=== PATIENT | male | born 1965 | race African-American/Black ===

== ENCOUNTER 2019-04-27 10:19 | Inpatient (IN) | payer OTHER ==
[2019-04-27 12:27] VITALS: BMI 25.7
--- NOTE | 2019-04-27 13:29 | HP ---
CIWA Score Nausea/Vomitin Muscle Tremors: 2 Anxiety: 2 Agitation: 2 Paroxysmal Sweats: 2 Orientation: 0-Oriented Tacttile Disturbances: 2-Mild Itch/Numbness/Burn Auditory Disturbances: 0-None Visual Disturbances: 1-Very Mild Sensitivity Headache: 2-Mild CIWA-Ar Total Score: 15 - Admission Criteria OASAS Guidelines: Admission for Medically Managed Detox: Requires at least one of the followin. CIWA greater than 12 2. Seizures within the past 24 hours 3. Delirium tremens within the past 24 hours 4. Hallucinations within the past 24 hours 5. Acute intervention needed for co occurring medical disorder 6. Acute intervention needed for co occurring psychiatric disorder 7. Severe withdrawal that cannot be handled at a lower level of care (continued vomiting, continued diarrhea, abnormal vital signs) requiring intravenous medication and/or fluids 8. Patient presents the following: CIWA greater than 12 Admission Criteria Met: Admission criteria met Admitting History and Physical - Smoking History Smoking history: Current every day smoker Have you smoked in the past 12 months: Yes Aproximately how many cigarettes per day: 10 Admission ROS [facility] Chief Complaint: I need detox Allergies/Adverse Reactions: Allergies Allergy/AdvReac Type Severity Reaction Status Date / Time No Known Allergies Allergy Verified 04/27/19 12:14 History of Present Illness: Patient is a 54 year old man who presents for detox from alcohol. Patient denies previous treatment but reports rehab from July to september in 2019 in [place]. He reports remote h/o blackout, denies seizures. Exam Limitations: No Limitations - Ebola screening Have you traveled outside of the country in the last 21 days: No Have you had contact with anyone from an Ebola affected area: No Have you been sick,other than usual withdrawal symptoms: No Do you have a fever: No - Review of Systems Constitutional: Loss of Appetite, Malaise, Changes in sleep, Unintentional Wgt. Loss EENT: reports: Blurred Vision (wear eye glasses) Respiratory: reports: Cough (r/t smoking) Cardiac: reports: Palpitations (sometimes) GI: reports: Poor Appetite, Poor Fluid Intake, Abdominal cramping : reports: No Symptoms Reported Musculoskeletal: reports: Back Pain, Muscle Pain, Muscle Weakness Integumentary: reports: Sweating Neuro: reports: Headache, Numbness, Tremors Endocrine: reports: No Symptoms Reported Hematology: reports: No Symptoms Reported Psychiatric: reports: Anxious Other Systems: Reviewed and Negative Patient History - Patient Medical History Hx Anemia: No Hx Asthma: No Hx Chronic Obstructive Pulmonary Disease (COPD): No Hx Cancer: No Hx Cardiac Disorders: Yes (enlarged heart) Hx Congestive Heart Failure: No Hx Hypertension: Yes Hx Hypercholesterolemia: Yes Hx Pacemaker: No HX Cerebrovascular Accident: No Hx Seizures: No Hx Dementia: No Hx Diabetes: No Hx Gastrointestinal Disorders: Yes (GERD) Hx Liver Disease: No Hx Genitourinary Disorders: No Hx Sexually Transmitted Disorders: No Hx Renal Disease (ESRD): No Hx Thyroid Disease: No Hx Human Immunodeficiency Virus (HIV): No Hx Hepatitis C: No Hx Depression: No Hx Suicide Attempt: No Hx Bipolar Disorder: No Hx Schizophrenia: No - Patient Surgical History Past Surgical History: No - PPD History Previous Implant?: No Documented Results: Negative w/o proof Implanted On Prior [facility] Admission?: No PPD to be Administered?: Yes - Smoking Cessation Smoking history: Current every day smoker Have you smoked in the past 12 months: Yes Aproximately how many cigarettes per day: 10 Hx Chewing Tobacco Use: No Initiated information on smoking cessation: Yes 'Breaking Loose' booklet given: 04/27/19 - Substances abused Alcohol Substance route: Oral Frequency: Daily Amount used: 1 liter [place]ne Age of first use: 9 Date of last use: 04/26/19 Admission Physical Exam [facility] - Vital Signs Vital Signs: Vital Signs - 24 hr 04/27/19 12:23 Temperature 96.9 F L Pulse Rate 80 Respiratory 16 Rate Blood Pressure 142/90 - Physical General Appearance: Yes: No Apparent Distress, Other (emotional) HEENTM: Yes: Normocephalic, Normal Voice, Pharynx Normal Respiratory: Yes: Chest Non-Tender, Lungs Clear, No Respiratory Distress, No A ccessory Muscle Use Neck: Yes: No masses,lesions,Nodules, Supple Breast: Yes: Breast Exam Deferred Cardiology: Yes: Regular Rhythm, Regular Rate, S1, S2 Abdominal: Yes: Normal Bowel Sounds, Non Tender, Hernia (abdominal), Other (firm) Genitourinary: Yes: Within Normal Limits Back: Yes: Normal Inspection Musculoskeletal: Yes: Back pain, Muscle Pain, Muscle weakness Extremities: Yes: Tremors 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: 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 NML intact, Fully Oriented, Alert, Normal Mood/Affect, Normal Response Integumentary: Yes: Moist Lymphatic: Yes: Within Normal Limits - Diagnostic (1) Alcohol dependence, uncomplicated Current Visit: Yes Status: Acute (2) HTN (hypertension) Current Visit: Yes Status: Acute Qualifiers: Hypertension type: essential hypertension Qualified Code(s): I10 - Essential (primary) hypertension (3) Hyperlipidemia Current Visit: Yes Status: Acute Qualifiers: Hyperlipidemia type: other hyperlipidemia Qualified Code(s): E78.49 - Other hyperlipidemia; E78.4 - Other hyperlipidemia (4) Nicotine dependence Current Visit: Yes Status: Acute Qualifiers: Nicotine product type: cigarettes Substance use status: uncomplicated Qualified Code(s): F17.210 - Nicotine dependence, cigarettes, uncomplicated (5) GERD (gastroesophageal reflux disease) Current Visit: Yes Status: Chronic Qualifiers: Esophagitis presence: without esophagitis Qualified Code(s): K21.9 - Gastro-esophageal reflux disease without esophagitis Cleared for Admission [facility] - Detox or Rehab S Level of Care: Medically Managed Detox Regimen/Protocol: Librium Claeared for Rehab Admission: No Breathalyzer - Breathalyzer Breathalyzer: 0 Urine Drug Screen - Test Device Lot number: [id number] Expiration date: 12/28/19 - Control Is test valid?: Yes - Results Drug screen NEGATIVE: Yes Inpatient Rehab Admission - Rehab Decision to Admit Inpatient rehab admission?: No
[2019-04-27] MEDS ORDERED: MAGNESIUM CITRATE 300 ML BOTTLE PO PRN (13:39)
[2019-04-27] MEDS ORDERED: MENTHOL/PHENOL 1 EACH UD MM PRN (13:39)
[2019-04-27] MEDS ORDERED: ONDANSETRON *ODT* 4 MG TABLET SL ONE (13:39)
[2019-04-27] MEDS ORDERED: MAG HYDROX/AL HYDROX/SIMETH 30 ML UNIT-DOSE CUP PO PRN (13:39)
[2019-04-27] MEDS ORDERED: IBUPROFEN 400 MG TABLET (FP) PO PRN (13:39)
[2019-04-27] MEDS ORDERED: BISMUTH SUBSALICYLATE 524 MG/30 ML UD PO PRN (13:39)
[2019-04-27] MEDS ORDERED: chlordiazePOXIDE HCL 10 MG CAPSULE PO PRN (13:39)
[2019-04-27] MEDS ORDERED: chlordiazePOXIDE HCL 25 MG CAPSULE PO ONE (13:39)
[2019-04-27] MEDS ORDERED: MAGNESIUM HYDROX 2400MG/30ML ORAL SUSPENSION 30 ML CUP PO PRN (13:39)
[2019-04-27] MEDS ORDERED: ACETAMINOPHEN 325 MG TABLET (FP) PO PRN ×2 (13:39)
[2019-04-27] MEDS ORDERED: NICOTINE POLACRILEX 2 MG GUM BUC PRN (13:39)
[2019-04-27] MEDS ORDERED: METHOCARBAMOL 500 MG TABLET PO PRN (13:39)
[2019-04-27] MEDS: hydrOXYzine PAMOATE 25 MG CAPSULE (FP) PO SCH ×3 (14:38→22:15)
[2019-04-27] MEDS ORDERED: MELATONIN 5 MG TABLETS PO SCH (22:00)
[2019-04-27] MEDS ORDERED: THIAMINE HCL 100 MG TABLET (FP) PO SCH (22:00)
[2019-04-27] MEDS: chlordiazePOXIDE HCL 25 MG CAPSULE PO SCH (22:15)
[2019-04-28] MEDS: hydrOXYzine PAMOATE 25 MG CAPSULE (FP) PO SCH ×3 (05:37→15:30)
[2019-04-28] MEDS: chlordiazePOXIDE HCL 25 MG CAPSULE PO SCH ×2 (05:37→14:00)
--- NOTE | 2019-04-28 09:39 | PN ---
S CIWA - CIWA Score Nausea/Vomitin Muscle Tremors: 2 Anxiety: 3 Agitation: 3 Paroxysmal Sweats: 1-Minimal Palms Moist Orientation: 0-Oriented Tacttile Disturbances: 1-Very Mild Itch/Numbness Auditory Disturbances: 0-None Visual Disturbances: 0-None Headache: 2-Mild CIWA-Ar Total Score: 14 [facility] Progress Note (SOAP) Subjective: alert,irritable,anxious,interrupted sleep,tremor Objective: 04/28/19 09:38 Vital Signs Temperature 97.9 F 04/28/19 05:15 Pulse Rate 82 04/28/19 06:30 Respiratory Rate 18 04/28/19 05:15 Blood Pressure 139/91 04/28/19 06:30 O2 Sat by Pulse Oximetry (%) Assessment: 04/28/19 09:38 labs pending Plan: continue detox librium regimen
[2019-04-28] MEDS ORDERED: LISINOPRIL 10 MG TABLET (FP) PO SCH (10:00)
[2019-04-28] MEDS ORDERED: PRENATAL VITAMINS W/ FOLIC ACID TABLET (FP) PO SCH (10:00)
[2019-04-28] MEDS ORDERED: PANTOPRAZOLE 20 MG TABLET PO SCH (10:00)
[2019-04-28 10:20] LABS: HEMATOCRIT 39.3 % (35.4-49); HEMOGLOBIN 13.3 GM/dL (11.7-16.9); MCH 32.7 pg (25.7-33.7); MCHC 33.9 g/dl (32.0-35.9); MEAN CELL VOLUME 96.4 fl (80-96); MEAN PLT VOLUME 7.9 fl (7.5-11.1); PLATELET COUNT 272 K/MM3 (134-434); RBC 4.08 M/mm3 (4.00-5.60); RDW 13.4 % (11.9-15.9); WHITE BLOOD COUNT 3.2 K/mm3 (4.0-10.0)
[2019-04-28 10:28] VITALS: TEMP 97.5
[2019-04-28 10:29] LABS: BILIRUBIN,TOTAL 0.3 mg/dL (0.2-1); BLOOD UREA NITROGEN 6.8 mg/dL (7-18); CALCIUM 8.8 mg/dL (8.5-10.1); CREATININE 0.8 mg/dL (0.55-1.3); POTASSIUM 3.9 mmol/L (3.5-5.1); TOT PROT 6.5 g/dl (6.4-8.2)
[2019-04-28 14:51] VITALS: BP 132/92; PULSE 65
--- NOTE | 2019-04-28 15:44 | PN ---
[facility] Progress Note Note: patient did want to complete treatment,stated the has emergency medical problem,high risk of relapsing explained,patient understood, signed release ama,seen by counselor,advise to call 911 if not feeling well
--- NOTE | 2019-04-28 15:50 | DS ---
[facility] Detox Discharge Summary Admission Date: 04/27/19 Discharge Date: 04/28/19 - History Present History: Alcohol Dependence Additional Comments: patient did not want to completed treatment signed release ama alert,oriented x 3 ambulation on unit heart normal heart sound s1 s2 lung clear bilaterally abdomen soft,no distension,no pain left the unit in stable condition time spend on discharge 35 mins has all medications at home Pertinent Past History: hypertension hyperlipidemia nicotine dependence - Physical Exam Results Vital Signs: Vital Signs Temperature 97.5 F L 04/28/19 14:30 Pulse Rate 65 04/28/19 14:30 Respiratory Rate 18 04/28/19 14:30 Blood Pressure 132/92 04/28/19 14:30 O2 Sat by Pulse Oximetry (%) Pertinent Admission Physical Exam Findings: withdrawal signs and symptom Laboratory Last Values WBC 3.2 K/mm3 (4.0-10.0) L 04/28/19 07:50 RBC 4.08 M/mm3 (4.00-5.60) 04/28/19 07:50 Hgb 13.3 GM/dL (11.7-16.9) 04/28/19 07:50 Hct 39.3 % (35.4-49) 04/28/19 07:50 MCV 96.4 fl (80-96) H 04/28/19 07:50 MCH 32.7 pg (25.7-33.7) 04/28/19 07:50 MCHC 33.9 g/dl (32.0-35.9) 04/28/19 07:50 RDW 13.4 % (11.9-15.9) 04/28/19 07:50 Plt Count 272 K/MM3 (134-434) 04/28/19 07:50 MPV 7.9 fl (7.5-11.1) 04/28/19 07:50 Sodium 142 mmol/L (136-145) 04/28/19 07:50 Potassium 3.9 mmol/L (3.5-5.1) 04/28/19 07:50 Chloride 108 mmol/L (98-107) H 04/28/19 07:50 Carbon Dioxide 28 mmol/L (21-32) 04/28/19 07:50 Anion Gap 6 MMOL/L (8-16) L 04/28/19 07:50 BUN 6.8 mg/dL (7-18) L 04/28/19 07:50 Creatinine 0.8 mg/dL (0.55-1.3) 04/28/19 07:50 Est GFR (CKD-EPI)AfAm 119.04 04/28/19 07:50 Est GFR (CKD-EPI)NonAf 102.71 04/28/19 07:50 Random Glucose 96 mg/dL (74-106) 04/28/19 07:50 Calcium 8.8 mg/dL (8.5-10.1) 04/28/19 07:50 Total Bilirubin 0.3 mg/dL (0.2-1) 04/28/19 07:50 AST 36 U/L (15-37) 04/28/19 07:50 ALT 49 U/L (13-61) 04/28/19 07:50 Alkaline Phosphatase 71 U/L (45-117) 04/28/19 07:50 Total Protein 6.5 g/dl (6.4-8.2) 04/28/19 07:50 Albumin 3.0 g/dl (3.4-5.0) L 04/28/19 07:50 RPR Titer Nonreactive (NONREACTIVE) 04/28/19 07:50 Vital Signs Temperature 97.5 F L 04/28/19 14:30 Pulse Rate 65 04/28/19 14:30 Respiratory Rate 18 04/28/19 14:30 Blood Pressure 132/92 04/28/19 14:30 O2 Sat by Pulse Oximetry (%) - Medication Discharge Medications: Ambulatory Orders Lisinopril 10 mg PO DAILY 04/27/19 Omeprazole 20 mg PO DAILY 04/27/19 - Diagnosis (1) Alcohol dependence, uncomplicated Current Visit: Yes Status: Acute (2) HTN (hypertension) Current Visit: Yes Status: Acute Qualifiers: Hypertension type: essential hypertension Qualified Code(s): I10 - Essential (primary) hypertension (3) Hyperlipidemia Current Visit: Yes Status: Acute Qualifiers: Hyperlipidemia type: other hyperlipidemia Qualified Code(s): E78.49 - Other hyperlipidemia; E78.4 - Other hyperlipidemia (4) Nicotine dependence Current Visit: Yes Status: Acute Qualifiers: Nicotine product type: cigarettes Substance use status: uncomplicated Qualified Code(s): F17.210 - Nicotine dependence, cigarettes, uncomplicated (5) GERD (gastroesophageal reflux disease) Current Visit: Yes Status: Chronic Qualifiers: Esophagitis presence: without esophagitis Qualified Code(s): K21.9 - Gastro-esophageal reflux disease without esophagitis - AMA Did Patient Leave Against Medical Advice: Yes
[2019-04-29] MEDS ORDERED: chlordiazePOXIDE 5 MG CAPSULE PO SCH (05:00)
[2019-04-30] MEDS ORDERED: chlordiazePOXIDE HCL 10 MG CAPSULE PO PRN
[2019-04-30] MEDS ORDERED: chlordiazePOXIDE HCL 10 MG CAPSULE PO SCH (05:00)
[2019-05-01] MEDS ORDERED: chlordiazePOXIDE HCL 10 MG CAPSULE PO ONE (05:00)
== END 2019-04-28 16:15 | disposition left against medical advice (07) | DRG 770 ==
LOC: YASAS 10:19 → Y6N 14:09
PROVIDERS: ADMIT Allergy & Immunology; ATTEND Allergy & Immunology
PROC: HZ2ZZZZ Detoxification Services for Substance Abuse Treatment (ICD-10-PCS; principal; 2019-04-27)
DX: F10.230 Alcohol dependence with withdrawal, uncomplicated (principal); F17.210 Nicotine dependence, cigarettes, uncomplicated; I10 Essential (primary) hypertension; K21.9 Gastro-esophageal reflux disease without esophagitis; E78.5 Hyperlipidemia, unspecified
CPT/HCPCS: 36415; 80053; 85027; 86593